=== PATIENT | male | born 1995 | race Caucasian/White ===

== ENCOUNTER 2018-03-04 16:46 | Emergency (ER) | payer OTHER ==
[~2018-03-04] VITALS: Ht 182.9 cm; Wt 81.7 kg
[~2018-03-04 16:46] MED LIST: ACETAMINOPHEN-1 EAC1 PO; AMOXICILLIN875 MG PO; BACTRIM DS TAB1 EACH PO; EPIPEN 2-P0.3 MG/0.3 IM; IBUPROFEN 800800 M1 PO; MEDROLDOSEPACK PO; NOHOMEMEDICATIONS; VICODIN 5-5001 EACH PO; XANAX 0.5 MG0.5 MG; ZOFRAN4 MG PO
[2018-03-04] MEDS ORDERED: KEFLEX500 M1 PO (17:04)
[2018-03-04] MEDS ORDERED: BACTRIM DS TAB1 EACH PO (17:04)
[2018-03-04 18:05] VITALS: BP 136/80
== END 2018-03-04 18:05 | disposition home or self-care (01) ==
LOC: M.ERS 16:46
DX: L02.414 Cutaneous abscess of left upper limb (principal); L03.114 Cellulitis of left upper limb; F31.9 Bipolar disorder, unspecified; Z88.5 Allergy status to narcotic agent

== ENCOUNTER 2019-07-01 16:06 | Emergency (ER) | payer OTHER ==
[~2019-07-01] VITALS: Ht 185.4 cm; Wt 104.3 kg
[~2019-07-01 16:06] MED LIST changes: +KEFLEX500 M1 PO
[2019-07-01 16:53] LABS: URINE BLOOD TRACE (Negative); URINE CLARITY CLEAR; URINE COLOR YELLOW; URINE GLUCOSE-RANDOM NEGATIVE (Negative); URINE LEUKOCYTES-REFLEX NEGATIVE (Negative); URINE NITRITE-REFLEX NEGATIVE (Negative); URINE PROTEIN 1+ (Negative); URINE SPECIFIC GRAVITY >= 1.030 (1.005-1.030); URINE UROBILINOGEN 0.2 E.U./dl (0.2-1.0)
[2019-07-01 16:59] LABS: ICTOTEST (BILI CONFIRMATORY) Negative (Negative); URINE BILIRUBIN 2+ (Negative); URINE KETONES 3+ (Negative)
[2019-07-01 17:05] LABS: AMP/METHAMP POSITIVE (Negative); BARBITURATES Negative (Negative); BENZODIAZEPINES POSITIVE (Negative); COCAINE Negative (Negative); METHADONE Negative (Negative); OPIATES POSITIVE (Negative); PCP Negative (Negative); THC POSITIVE (Negative)
[2019-07-01] MEDS ORDERED: KEFLEX500 M1 PO (18:12)
[2019-07-01] MEDS ORDERED: ACETAMINOPHEN-1 EAC2 PO (18:12)
[2019-07-01 18:52] VITALS: BP 125/74
== END 2019-07-01 18:57 | disposition home or self-care (01) ==
LOC: M.ERS 16:06
PROVIDERS: Personal Emergency Response Attendant
DX: S62.522A Displaced fracture of distal phalanx of left thumb, initial encounter for closed fracture (principal); S62.512A Displaced fracture of proximal phalanx of left thumb, initial encounter for closed fracture; S20.211A Contusion of right front wall of thorax, initial encounter; S50.811A Abrasion of right forearm, initial encounter; M79.671 Pain in right foot; F31.9 Bipolar disorder, unspecified; F17.210 Nicotine dependence, cigarettes, uncomplicated; Z88.6 Allergy status to analgesic agent; W13.2XXA Fall from, out of or through roof, initial encounter; Y93.89 Activity, other specified; Y92.89 Other specified places as the place of occurrence of the external cause; Y99.8 Other external cause status